=== PATIENT | female | born 1935 | race Caucasian/White ===

== ENCOUNTER 2016-10-11 02:39 | Inpatient (IN) | payer OTHER, MEDICARE ==
[~2016-10-11] VITALS: Ht 172.7 cm; Wt 83.8 kg
[~2016-10-11 02:39] MED LIST: ACTOS45 MG PO; ASPIRIN81 M1 PO; CALTRATE600 MG PO; CINNABETIC1 CAPSUL1 PO; CIPRO500 MG; CYANOCOBALAM1000 MCG PO; GABAPENTIN300 MG PO; GABAPENTIN600 MG PO; GARLIC OIL1 EAC1 PO; GLIPIZIDE10 M1 PO; GLUCOPHAGE500 MG; HYDROCODON-ACE1 EACH; LANTUS 3 M100 UNITS/ SC; LORTAB 5-325 M1 EACH PO; LORTAB 7.5-500473 ML PO; METFORMIN HCL500 MG PO; MICARDIS40 MG; MICARDIS40 MG PO; MOBIC7.5 MG PO; NAFCIL IV; NAFCIL2 GM; NATURAL VITA200 UNIT PO; NORVASC5 MG PO; TIZANIDINE HCL4 MG; VITAMIN D1000 UNIT PO; ZETIA10 MG PO
[2016-10-11 03:24] LABS: ADD MIUA? YES; BILIRUBIN NEGATIVE; BLOOD MODERATE; COLOR YELLOW ((YELLOW)); GLUCOSE (STRIP) 50; KETONES 5; LEUKOCYTES NEGATIVE; NITRITE POSITIVE; PROTEIN (STRIP) 30; SPECIFIC GRAVITY 1.019 (1.000-1.030); UROBILINOGEN 0.2 MG/DL (0.2-1.0)
[2016-10-11 03:29] LABS: EOSINOPHIL (%) 0.4 % (0-5); EOSINOPHIL COUNT 0.1 K/uL (0-0.3); HEMATOCRIT 39.9 % (36.0-46.0); IMMATURE GRANULOCYTE (%) 0.2 % (0.0-0.7); IMMATURE GRANULOCYTE COUNT 0.3 K/uL; LYMPHOCYTE COUNT 1.1 K/uL (1.0-2.8); MCH 30.1 PG (29.0-34.0); MCHC 33.1 G/DL (30.0-36.0); MCV 90.9 FL (83-99); MEAN PLAT.VOLUME 10.1 uM^3 (9.5-12.4); MONOCYTE (%) 9.6 % (3-12); MONOCYTE COUNT 1.3 K/uL (0-0.8); NEUTROPHIL (%) 81.6 % (45-76); NEUTROPHIL COUNT 10.6 K/uL (1.8-6.4); PLATELET COUNT 241 K/uL (156-360); RBC DIS.WIDTH-CV 14.1 % (11.8-14.6); RBC DIS.WIDTH-SD 45.8 % (39-53); RED BLOOD COUNT 4.39 M/uL (3.80-5.20)
[2016-10-11 03:39] LABS: CHLORIDE 101 mEq/L (99-109); POTASSIUM 4.6 mEq/L (3.7-5.4); SODIUM 136 mEq/L (136-147)
[2016-10-11 03:40] LABS: GLUCOSE 236 mg/dL (70-99)
[2016-10-11 03:42] LABS: ANION GAP 11 MEQ/L (2-14)
[2016-10-11 03:44] LABS: BACTERIA 3+ /HPF; EPITHELIAL CELLS NONE SEEN /HPF; MUCUS 2+ /LPF; RED BLOOD CELLS 0-5 /HPF (0-5); UCUL ADDED? YES
[2016-10-11 03:44] LABS: GFR ESTIMATE (CALCULATED) 51 mL/min/
[2016-10-11 03:45] LABS: UREA NITROGEN (BUN) 19 mg/dL (9-23)
[2016-10-11 03:51] LABS: TROP-I INTERPRETATION NEGATIVE; TROPONIN-I 0.03 ng/mL (0.0-0.30)
[2016-10-11 04:52] LABS: HDL CHOLESTEROL 38 MG/DL (Desirable>=50); LDL CHOLESTEROL 79 mg/dL (Desirable<100); NON-HDL CHOLESTEROL 98 mg/dL (Desirable<160); TOTAL CHOLESTEROL 136 mg/dL (Desirable<200); TRIGLYCERIDES 95 MG/DL (Normal: <150)
[2016-10-11] MEDS ORDERED: LANTUS 3 M100 UNITS1 SC (05:33)
[2016-10-11 07:17] VITALS: BP 179/79
[2016-10-11 07:54] LABS: Estimated Average Glucose 171 mg/dL (70-123); HEMOGLOBIN A1c (GLYCOHEMOGLOB) 7.6 % HGB (Below 5.7)
[2016-10-11 14:33] VITALS: BP 158/75
[2016-10-11 16:14] LABS: POINT-OF-CARE METER ID UU13113725
[2016-10-11 22:31] VITALS: BP 147/68
[2016-10-12 07:44] LABS: EOSINOPHIL (%) 0.7 % (0-5); EOSINOPHIL COUNT 0.1 K/uL (0-0.3); HEMATOCRIT 40.1 % (36.0-46.0); IMMATURE GRANULOCYTE (%) 0.2 % (0.0-0.7); LYMPHOCYTE COUNT 1.9 K/uL (1.0-2.8); MCH 29.2 PG (29.0-34.0); MCHC 31.9 G/DL (30.0-36.0); MCV 91.6 FL (83-99); MEAN PLAT.VOLUME 10.6 uM^3 (9.5-12.4); MONOCYTE (%) 15.1 % (3-12); MONOCYTE COUNT 1.3 K/uL (0-0.8); NEUTROPHIL (%) 60.9 % (45-76); NEUTROPHIL COUNT 5.1 K/uL (1.8-6.4); PLATELET COUNT 248 K/uL (156-360); RBC DIS.WIDTH-CV 14.2 % (11.8-14.6); RBC DIS.WIDTH-SD 47.7 % (39-53); RED BLOOD COUNT 4.38 M/uL (3.80-5.20)
[2016-10-12 07:48] LABS: ANION GAP 10 MEQ/L (2-14); CHLORIDE 101 MEQ/L (99-109); GFR ESTIMATE (CALCULATED) > 59 mL/min/; GLUCOSE 171 mg/dL (70-99); POTASSIUM 4.6 MEQ/L (3.7-5.4); SAMPLE HEMOLYSIS CHECK 0; SAMPLE ICTERIC CHECK 0; SAMPLE LIPEMIA CHECK 0; SODIUM 138 MEQ/L (136-147); UREA NITROGEN (BUN) 12 mg/dL (9-23)
[2016-10-12 07:52] LABS: WHITE BLOOD COUNT 8.3 K/uL (4.1-10.2)
[2016-10-12 08:32] VITALS: BP 156/73
[2016-10-12] MEDS ORDERED: GLUCOPHAGE XR,500 MG PO (12:25)
[2016-10-12] MEDS ORDERED: GLUCOTROL XL10 MG PO (12:26)
[2016-10-12] MEDS ORDERED: LO-DOSE ASPIRIN81 M1 PO (12:26)
[2016-10-12] MEDS ORDERED: COZAAR50 MG PO (12:27)
[2016-10-12] MEDS ORDERED: CALTRATE 600 +1 EAC1 PO (12:27)
[2016-10-12] MEDS ORDERED: TYLENOL EXTRA500 MG PO (12:28)
[2016-10-12 16:09] VITALS: BP 133/78
[2016-10-12 16:17] LABS: POINT-OF-CARE METER ID UU13113725
[2016-10-12 21:26] LABS: POINT-OF-CARE METER ID UU13113725
[2016-10-12 23:40] VITALS: BP 145/72
[2016-10-13 07:39] LABS: POINT-OF-CARE METER ID UU13113725
[2016-10-13 09:31] VITALS: BP 148/61
[2016-10-13 16:44] VITALS: BP 122/58
[2016-10-13 21:00] LABS: POINT-OF-CARE METER ID UU13113725
[2016-10-13 22:33] VITALS: BP 129/78
[2016-10-14 05:59] LABS: POINT-OF-CARE METER ID UU13113725
[2016-10-14 07:37] VITALS: BP 168/74
[2016-10-14 11:05] LABS: POINT-OF-CARE METER ID UU13113725
[2016-10-14] MEDS ORDERED: AMPICILLIN TRI500 MG PO (11:38)
== END 2016-10-14 14:02 | DRG 690 ==
LOC: EME 02:39 → EDOF 05:36 → 5EAST 05:36
PROVIDERS: Emergency Medicine; Hospitalist; Student in an Organized Health Care Education/Training Program
DX: N39.0 Urinary tract infection, site not specified (principal); R53.1 Weakness; R26.2 Difficulty in walking, not elsewhere classified; E11.9 Type 2 diabetes mellitus without complications; I10 Essential (primary) hypertension; B96.20 Unspecified Escherichia coli [E. coli] as the cause of diseases classified elsewhere; Z96.642 Presence of left artificial hip joint
CPT/HCPCS: 70450; 70551; 71020; 80048; 80061; 81003; 82948; 83036; 84484; 85025; 87070; 87075; 87077; 87086; 87186; 87205; 93005; 97530 GO; 99281; 99285; J0696; J1644; J1815; J7030; J7050

== ENCOUNTER 2017-08-13 11:27 | Inpatient (IN) | payer OTHER, MEDICARE ==
[~2017-08-13] VITALS: Ht 160 cm; Wt 81.1 kg
[~2017-08-13 11:27] MED LIST changes: +AMPICILLIN TRI500 MG PO; +CALTRATE 600 +1 EAC1 PO; +COZAAR50 MG PO; -GABAPENTIN600 MG PO; +GLUCOPHAGE XR,500 MG PO; +GLUCOTROL XL10 MG PO; +LANTUS 3 M100 UNITS1 SC; +LO-DOSE ASPIRIN81 M1 PO; +NEURONTIN300 MG PO; +TYLENOL EXTRA500 MG PO
[2017-08-13 13:36] LABS: BASOPHIL (%) 0.1 % (0-1); EOSINOPHIL (%) 0 % (0-5); HEMATOCRIT 39.5 % (36.0-46.0); HEMOGLOBIN 12.9 G/DL (11.9-15.5); IMMATURE GRANULOCYTE (%) 0.5 % (0.0-0.7); LYMPHOCYTE (%) 13.2 % (15-42); LYMPHOCYTE COUNT 1.4 K/uL (1.0-2.8); MCHC 32.7 G/DL (30.0-36.0); MCV 91.9 FL (83-99); NEUTROPHIL (%) 77.2 % (45-76); NEUTROPHIL COUNT 8.5 K/uL (1.8-6.4); PLATELET COUNT 282 K/uL (156-360); RBC DIS.WIDTH-CV 14.1 % (11.8-14.6); RBC DIS.WIDTH-SD 47.7 % (39-53); WHITE BLOOD COUNT 10.9 K/uL (4.1-10.2)
[2017-08-13 13:43] LABS: INTER. NORMALIZED RATIO 1.2
[2017-08-13 13:45] LABS: ALBUMIN 3.7 g/dL (3.2-4.8); CHLORIDE 102 mEq/L (99-109); POTASSIUM 4.1 mEq/L (3.7-5.4); SODIUM 136 mEq/L (136-147)
[2017-08-13 13:46] LABS: PTT 29.2 SEC (25-37)
[2017-08-13 13:47] LABS: GLUCOSE 210 mg/dL (70-99)
[2017-08-13 13:48] LABS: TOTAL PROTEIN 7.2 g/dL (6.4-8.3)
[2017-08-13 13:49] LABS: TOTAL BILIRUBIN 2.2 mg/dL (0.0-1.0)
[2017-08-13 13:51] LABS: ALKALINE PHOSPHATASE 330 IU/L (3-129); GFR ESTIMATE (CALCULATED) 56 mL/min/
[2017-08-13 13:52] LABS: UREA NITROGEN (BUN) 14 mg/dL (9-23)
[2017-08-13 13:53] LABS: AST (GOT) 560 IU/L (2-34)
[2017-08-13 13:54] LABS: ALT (GPT) 537 IU/L (3-49)
[2017-08-13 13:56] LABS: TROP-I INTERPRETATION NEGATIVE; TROPONIN-I 0.06 ng/mL (0.0-0.30)
[2017-08-13 14:47] LABS: LIPASE 14 U/L (1.0-51.0)
[2017-08-13 15:03] LABS: APPEARANCE SL.HAZY ((CLEAR)); BILIRUBIN NEGATIVE; BLOOD SMALL; COLOR AMBER ((YELLOW)); GLUCOSE (STRIP) >=500; KETONES NEGATIVE; LEUKOCYTES NEGATIVE; NITRITE NEGATIVE; PROTEIN (STRIP) NEGATIVE; SPECIFIC GRAVITY 1.014 (1.000-1.030)
[2017-08-13 15:19] LABS: BACTERIA 2+ /HPF; EPITHELIAL CELLS RARE /HPF; MUCUS TRACE /LPF; RED BLOOD CELLS 0-5 /HPF (0-5); UCUL ADDED? YES
[2017-08-13] MEDS ORDERED: BENZONATATE100 MG PO (17:28)
[2017-08-13] MEDS ORDERED: SOFTCLIX1 EAC2 MC (17:29)
[2017-08-13] MEDS ORDERED: ADVIL LIQUI-GE200 MG PO (17:30)
[2017-08-13] MEDS ORDERED: ROBITUSSIN DM118 ML PO (17:33)
[2017-08-13 18:04] VITALS: BP 161/76
[2017-08-13 19:02] VITALS: BP 151/78
[2017-08-13 23:30] VITALS: BP 137/72
[2017-08-14 03:35] VITALS: BP 118/52
[2017-08-14 07:01] LABS: BASOPHIL (%) 0.1 % (0-1); EOSINOPHIL (%) 0.5 % (0-5); EOSINOPHIL COUNT 0.1 K/uL (0-0.3); HEMOGLOBIN 11.3 G/DL (11.9-15.5); IMMATURE GRANULOCYTE (%) 0.5 % (0.0-0.7); LYMPHOCYTE (%) 17.2 % (15-42); LYMPHOCYTE COUNT 1.7 K/uL (1.0-2.8); MCH 30.5 PG (29.0-34.0); MCHC 33.2 G/DL (30.0-36.0); MCV 91.9 FL (83-99); MONOCYTE (%) 11.9 % (3-12); MONOCYTE COUNT 1.2 K/uL (0-0.8); NEUTROPHIL (%) 69.8 % (45-76); NEUTROPHIL COUNT 6.8 K/uL (1.8-6.4); PLATELET COUNT 238 K/uL (156-360); RBC DIS.WIDTH-CV 14.1 % (11.8-14.6); RBC DIS.WIDTH-SD 47.9 % (39-53); WHITE BLOOD COUNT 9.7 K/uL (4.1-10.2)
[2017-08-14 07:25] LABS: ALBUMIN 3.1 G/DL (3.2-4.8); ALKALINE PHOSPHATASE 228 IU/L (3-129); ALT (GPT) 281 IU/L (3-49); AST (GOT) 147 IU/L (2-34); DIRECT BILIRUBIN 2.3 mg/dL (0.0-0.3); TOTAL BILIRUBIN 3.6 MG/DL (0.0-1.0); TOTAL PROTEIN 5.5 G/DL (6.4-8.3)
[2017-08-14 08:35] VITALS: BP 153/72
[2017-08-14 11:58] VITALS: BP 147/75
[2017-08-14 15:16] VITALS: BP 150/76
[2017-08-14 19:16] VITALS: BP 167/73
[2017-08-14 23:32] VITALS: BP 137/65
[2017-08-15 03:09] VITALS: BP 135/69
[2017-08-15 06:34] LABS: BASOPHIL (%) 0.3 % (0-1); EOSINOPHIL (%) 0.8 % (0-5); EOSINOPHIL COUNT 0.1 K/uL (0-0.3); HEMATOCRIT 32.2 % (36.0-46.0); HEMOGLOBIN 10.8 G/DL (11.9-15.5); IMMATURE GRANULOCYTE (%) 0.6 % (0.0-0.7); LYMPHOCYTE (%) 16.4 % (15-42); LYMPHOCYTE COUNT 1.3 K/uL (1.0-2.8); MCH 30.6 PG (29.0-34.0); MCHC 33.5 G/DL (30.0-36.0); MCV 91.2 FL (83-99); MONOCYTE (%) 12.3 % (3-12); NEUTROPHIL (%) 69.6 % (45-76); NEUTROPHIL COUNT 5.5 K/uL (1.8-6.4); PLATELET COUNT 226 K/uL (156-360); RBC DIS.WIDTH-CV 14.1 % (11.8-14.6); RBC DIS.WIDTH-SD 47.4 % (39-53); RED BLOOD COUNT 3.53 M/uL (3.80-5.20); WHITE BLOOD COUNT 7.9 K/uL (4.1-10.2)
[2017-08-15 07:12] LABS: ALBUMIN 2.8 G/DL (3.2-4.8); ALKALINE PHOSPHATASE 186 IU/L (3-129); ALT (GPT) 159 IU/L (3-49); CHLORIDE 105 MEQ/L (99-109); CREATININE 0.7 MG/DL (0.6-1.3); GFR ESTIMATE (CALCULATED) > 59 mL/min/; GLUCOSE 184 mg/dL (70-99); POTASSIUM 4.3 MEQ/L (3.7-5.4); SODIUM 140 MEQ/L (136-147); TOTAL PROTEIN 5.2 G/DL (6.4-8.3); UREA NITROGEN (BUN) 10 mg/dL (9-23)
[2017-08-15 07:20] LABS: AST (GOT) 40 IU/L (2-34); DIRECT BILIRUBIN 0.4 mg/dL (0.0-0.3)
[2017-08-15 07:23] VITALS: BP 157/67
[2017-08-15 15:10] VITALS: BP 136/77
[2017-08-15 23:58] VITALS: BP 160/74
[2017-08-16 06:51] LABS: BASOPHIL (%) 0.1 % (0-1); EOSINOPHIL (%) 1.2 % (0-5); EOSINOPHIL COUNT 0.1 K/uL (0-0.3); HEMOGLOBIN 11.2 G/DL (11.9-15.5); IMMATURE GRANULOCYTE (%) 0.4 % (0.0-0.7); LYMPHOCYTE (%) 16.6 % (15-42); LYMPHOCYTE COUNT 1.2 K/uL (1.0-2.8); MCH 30.7 PG (29.0-34.0); MCHC 32.9 G/DL (30.0-36.0); MCV 93.2 FL (83-99); MONOCYTE COUNT 0.9 K/uL (0-0.8); NEUTROPHIL (%) 68.7 % (45-76); NEUTROPHIL COUNT 4.8 K/uL (1.8-6.4); PLATELET COUNT 257 K/uL (156-360); RBC DIS.WIDTH-CV 14.2 % (11.8-14.6); RBC DIS.WIDTH-SD 48.2 % (39-53); RED BLOOD COUNT 3.65 M/uL (3.80-5.20); WHITE BLOOD COUNT 6.9 K/uL (4.1-10.2)
[2017-08-16 07:21] LABS: ALBUMIN 2.9 G/DL (3.2-4.8); ALKALINE PHOSPHATASE 155 IU/L (3-129); ALT (GPT) 105 IU/L (3-49); AST (GOT) 15 IU/L (2-34); CHLORIDE 103 MEQ/L (99-109); CREATININE 0.9 MG/DL (0.6-1.3); DIRECT BILIRUBIN 0.3 mg/dL (0.0-0.3); GFR ESTIMATE (CALCULATED) > 59 mL/min/; GLUCOSE 175 mg/dL (70-99); POTASSIUM 4.9 MEQ/L (3.7-5.4); SODIUM 139 MEQ/L (136-147); TOTAL BILIRUBIN 0.6 MG/DL (0.0-1.0); TOTAL PROTEIN 5.4 G/DL (6.4-8.3); UREA NITROGEN (BUN) 10 mg/dL (9-23)
[2017-08-16 07:35] VITALS: BP 133/63
[2017-08-16 15:25] VITALS: BP 128/67
[2017-08-16] MEDS ORDERED: BACTRIM,SEPT1 TABLET PO (15:35)
== END 2017-08-16 16:40 | disposition home health service (06) | DRG 445 ==
LOC: EME 11:27 → EDOF 16:50 → ENRESERV 16:56 → 2EAST 18:00
PROVIDERS: Emergency Medicine; Physician Assistant; Surgery
PROC: 0F9430Z Drainage of Gallbladder with Drainage Device, Percutaneous Approach (ICD-10-PCS; principal; 2017-08-14)
DX: K80.00 Calculus of gallbladder with acute cholecystitis without obstruction (principal); N39.0 Urinary tract infection, site not specified; B96.1 Klebsiella pneumoniae [K. pneumoniae] as the cause of diseases classified elsewhere; R74.8 Abnormal levels of other serum enzymes; I10 Essential (primary) hypertension; E11.9 Type 2 diabetes mellitus without complications; E78.5 Hyperlipidemia, unspecified; Z96.653 Presence of artificial knee joint, bilateral; E66.9 Obesity, unspecified; Z68.31 Body mass index [BMI] 31.0-31.9, adult; Z79.4 Long term (current) use of insulin; Z79.82 Long term (current) use of aspirin; Z87.440 Personal history of urinary (tract) infections; Z87.891 Personal history of nicotine dependence
CPT/HCPCS: 49405; 71010; 72128; 72131; 74181; 76705; 80048; 80053; 80076; 81003; 82948; 83605; 83690; 84484; 85025; 85610; 85730; 87040; 87070; 87075; 87077; 87086 GA; 87186; 87205; 94799; 99281; 99285; C1729; C1769; G0378; G8978 GP CK; G8979 CJ; G8980 GP CK; J1815; J2405; J3010; J3480; J7030; J7120; S0028; S0074

== ENCOUNTER 2017-11-04 10:27 | Emergency (ER) | payer OTHER, MEDICARE ==
[~2017-11-04] VITALS: Ht 160 cm; Wt 81.9 kg
[~2017-11-04 10:27] MED LIST changes: +ADVIL LIQUI-GE200 MG PO; +BACTRIM,SEPT1 TABLET PO; +BENZONATATE100 MG PO; +ROBITUSSIN DM118 ML PO; +SOFTCLIX1 EAC2 MC
[2017-11-04 12:33] LABS: BASOPHIL (%) 0.2 % (0-1); EOSINOPHIL (%) 0.5 % (0-5); EOSINOPHIL COUNT 0.1 K/uL (0-0.3); HEMATOCRIT 39.2 % (36.0-46.0); HEMOGLOBIN 13.3 G/DL (11.9-15.5); IMMATURE GRANULOCYTE (%) 0.4 % (0.0-0.7); LYMPHOCYTE (%) 7.6 % (15-42); MCH 31.1 PG (29.0-34.0); MCHC 33.9 G/DL (30.0-36.0); MCV 91.8 FL (83-99); MONOCYTE (%) 7.8 % (3-12); MONOCYTE COUNT 1.1 K/uL (0-0.8); NEUTROPHIL (%) 83.5 % (45-76); NEUTROPHIL COUNT 11.4 K/uL (1.8-6.4); PLATELET COUNT 276 K/uL (156-360); RBC DIS.WIDTH-CV 14.6 % (11.8-14.6); RBC DIS.WIDTH-SD 49.2 % (39-53); RED BLOOD COUNT 4.27 M/uL (3.80-5.20); WHITE BLOOD COUNT 13.6 K/uL (4.1-10.2)
[2017-11-04 12:42] LABS: CHLORIDE 100 mEq/L (99-109); POTASSIUM 4.7 mEq/L (3.7-5.4); SODIUM 136 mEq/L (136-147)
[2017-11-04 12:44] LABS: GLUCOSE 227 mg/dL (70-99); TOTAL PROTEIN 7.3 g/dL (6.4-8.3)
[2017-11-04 12:46] LABS: TOTAL BILIRUBIN 0.5 mg/dL (0.0-1.0)
[2017-11-04 12:48] LABS: ALKALINE PHOSPHATASE 102 IU/L (3-129); GFR ESTIMATE (CALCULATED) 56 mL/min/
[2017-11-04 12:49] LABS: AST (GOT) 14 IU/L (2-34); UREA NITROGEN (BUN) 18 mg/dL (9-23)
[2017-11-04 12:51] LABS: ALT (GPT) 14 IU/L (3-49)
[2017-11-04 12:54] LABS: TROP-I INTERPRETATION NEGATIVE; TROPONIN-I 0.04 ng/mL (0.0-0.30)
[2017-11-04 14:26] LABS: APPEARANCE CLEAR ((CLEAR)); BILIRUBIN NEGATIVE; BLOOD NEGATIVE; COLOR STRAW ((YELLOW)); GLUCOSE (STRIP) NEGATIVE; KETONES NEGATIVE; LEUKOCYTES NEGATIVE; NITRITE NEGATIVE; PROTEIN (STRIP) NEGATIVE; SPECIFIC GRAVITY 1.004 (1.000-1.030); UCUL ADDED? NO; UROBILINOGEN 0.2 MG/DL (0.2-1.0)
[2017-11-04] MEDS ORDERED: PREDNISONE20 MG PO (16:20)
[2017-11-04] MEDS ORDERED: PROVENTIL HFA6.7 GM IH (16:20)
[2017-11-04] MEDS ORDERED: DOXYCYCLINE HY100 MG PO (16:20)
[2017-11-04 17:11] VITALS: BP 151/90
== END 2017-11-04 17:22 | disposition home or self-care (01) ==
LOC: EME 10:27
PROVIDERS: Emergency Medicine
DX: J44.1 Chronic obstructive pulmonary disease with (acute) exacerbation (principal); Z87.440 Personal history of urinary (tract) infections; Z87.891 Personal history of nicotine dependence; E78.5 Hyperlipidemia, unspecified; F41.9 Anxiety disorder, unspecified; Z79.82 Long term (current) use of aspirin; Z91.040 Latex allergy status
CPT/HCPCS: 71046; 80053; 81003; 83605; 84484; 85025; 87040; 87186; 87502; 87801; 93005; 99281; 99285; J7030; J7512

== ENCOUNTER → 2017-12-16 | Outpatient (CLI) | payer OTHER, MEDICARE ==
[~2017-12-16] MED LIST changes: +DOXYCYCLINE HY100 MG PO; +PREDNISONE20 MG PO; +PROVENTIL HFA6.7 GM IH
== END | disposition home or self-care (01) ==
LOC: RES 10:33
DX: R93.8 Abnormal findings on diagnostic imaging of other specified body structures (principal)
CPT/HCPCS: 94060; 94726; 94729